=== PATIENT | female | born 1995 | race Caucasian/White ===

== ENCOUNTER 2017-07-30 01:32 | Emergency (ER) | payer BC ==
[~2017-07-30] VITALS: Ht 170.2 cm; Wt 106.6 kg
[2017-07-30 01:32] VITALS: BP_SYST 139
--- NOTE | 2017-07-30 01:32 | NUR ---
Placed in room 7 . Placed on manager speech, blood pressure machine and pulse oximeter. To gown for exam. Side rails up. Report given by MAO Byrne to MAO Novoa.
--- NOTE | 2017-07-30 01:33 | NUR ---
Patient AAOx3, ambulatory. Patient states having pain to center of chest with pain scale 7/10 approximately 30 minutes prior to ER visit. Patient states she was having "pain to her shoulders throughout the day" and states she "started having chest pain while sitting down at home". Patient states having difficulty breathing, denies dizziness at this time. Patient states pain does not radiate at this time. Patient states pain has a "sharp" sensation and is continuous. Patient denies any other complaints.
[2017-07-30] MEDS ORDERED: ALBU8.5H8 INH (01:48)
[2017-07-30] MEDS ORDERED: FLUO60TA PO (01:48)
--- NOTE | 2017-07-30 01:49 | NUR ---
ER Dr. Zacarias at bedside examining patient.
--- NOTE | 2017-07-30 01:59 | NUR ---
Radiology at bedside.
[2017-07-30 02:24] VITALS: BP_SYST 125
--- NOTE | 2017-07-30 02:24 | NUR ---
Patient given written and verbal discharge instructions and verbalizes understanding. ER MD discussed with patient the results and treatment provided. Patient in stable condition. ID arm band removed. Rx of Motrin 800 mg tab given. Patient educated on pain management and to follow up with PMD. Pain Scale 0/10. Opportunity for questions provided and answered.
== END 2017-07-30 02:24 | disposition home or self-care (01) ==
LOC: SED 01:32
DX: M94.0 Chondrocostal junction syndrome [Tietze] (principal); J45.909 Unspecified asthma, uncomplicated; F32.9 Major depressive disorder, single episode, unspecified
CPT/HCPCS: 71045; 93005; 99284

== ENCOUNTER 2018-08-28 17:35 | Emergency (ER) | payer BC ==
[~2018-08-28] VITALS: Ht 170.2 cm; Wt 113.4 kg
[~2018-08-28 17:35] MED LIST: ALBU8.5H8 INH; FLUO60TA PO
[2018-08-28 17:43] VITALS: BP_SYST 132
[2018-08-28] MEDS ORDERED: NACL 0.9% 1,000 ML IV ONE (18:09)
--- NOTE | 2018-08-28 18:40 | NUR ---
Called pt x 1 , no answer
--- NOTE | 2018-08-28 18:50 | NUR ---
Patient to ER bed 03 to gown for evaluation. Side rails up.
[2018-08-28 19:02] LABS: EOSINOPHILS # (AUTO) 0.3 K/uL (0.0-0.4); LYMPHOCYTES # (AUTO) 1.5 K/uL (1.0-5.5)
--- NOTE | 2018-08-28 19:10 | NUR ---
Patient presents to ER for overdose of tylenol ES 500mg (8 tabs) and buspar 5mg (1 tab) at around 1600 today. Patient states no suicidal ideation and intent was not to harm self. Patient states she was trying to make a headache go away and medication was not helping. Mother at bedside. Patient resting on gurney at this time. No acute distress noted.
[2018-08-28 19:13] LABS: ANION GAP 12 (5-15); CALCIUM 8.6 mg/dL (8.4-11.0); CHLORIDE 103 mmol/L (98-107); CREATININE 0.54 mg/dL (0.55-1.30); GLUCOSE 100 mg/dL (70-99); POTASSIUM 3.2 mmol/L (3.5-5.1); SODIUM SERUM 139 mmol/L (136-145); UREA NITROGEN, BLOOD 11 mg/dL (8-21)
[2018-08-28 19:16] LABS: BASOPHILS % (AUTO) 0.5 % (0.0-2.0); EOSINOPHILS % (AUTO) 4.6 % (0.0-4.0); HEMATOCRIT 38.6 % (36-48); HEMOGLOBIN 12.6 g/dL (12.0-16.0); LYMPHOCYTES % (AUTO) 21.3 % (20.5-51.5); MEAN CORPUSCULAR HEMOGLOBIN 24 pg (27-31); MEAN CORPUSCULAR HGB CONC 33 % (32-36); MEAN CORPUSCULAR VOLUME 73 fL (79.0-98.0); MONOCYTES # (AUTO) 0.2 K/uL (0.0-1.0); MONOCYTES % (AUTO) 3.4 % (1.7-9.3); NEUTROPHILS % (AUTO) 70.2 % (40.0-70.0); PLATELET COUNT (AUTO) 372 K/uL (130-430); RED BLOOD CELL COUNT(AUTO) 5.31 MIL/uL (4.2-6.2); RED CELL DISTRIBUTION WIDTH 12.8 % (9.0-15.0)
[2018-08-28 19:22] LABS: GFR AFRICAN AMERICAN 182 mL/min (>90)
[2018-08-28 19:28] LABS: INR 0.9 (0.8-1.2); PROTHROMBIN TIME 9.3 SECS (9.5-12.5)
[2018-08-28 19:34] LABS: ACETAMINOPHEN 21 ug/mL (1-30); ALANINE AMINOTRANSFERASE 11 U/L (12-78); AMYLASE 72 U/L (0-100); ASPARTATE AMINOTRANSFERASE 10 U/L (10-37); LIPASE 218 U/L (73-393); TOTAL BILIRUBIN 0.4 mg/dL (0.0-1.0)
[2018-08-28 19:35] LABS: ALCOHOL, BLOOD < 3 mg/dL (<10)
[2018-08-28 19:37] LABS: BILIRUBIN,URINE NEGATIVE (NEGATIVE); BLOOD, URINE NEGATIVE (NEGATIVE); CLARITY/URINE CLEAR (CLEAR); COLOR,URINE YELLOW (YELLOW); GLUCOSE,URINE NEGATIVE (NEGATIVE); KETONES,URINE NEGATIVE (NEGATIVE); LEUKOCYTE ESTERASE ,URINE NEGATIVE (NEGATIVE); NITRITE, URINE NEGATIVE (NEGATIVE); PH,URINE 5.5 (5.0-8.0); PROTEIN URINE NEGATIVE (NEGATIVE); UROBILINOGEN,URINE 0.2 (0.2-1.0)
[2018-08-28 19:39] LABS: BARBITURATE, URINE NEGATIVE (NEG <=200); BENZODIAZEPINE, URINE NEGATIVE (NEG <=150); CANNABINOID, URINE NEGATIVE (NEG <=50); COCAINE, URINE NEGATIVE (NEG <=150); METHAMPHETAMINES SCREEN,URINE NEGATIVE (NEG <=500); OPIATE, URINE NEGATIVE (NEG <=100); PHENCYCLIDINE SCREEN,URINE NEGATIVE (NEG <=25); UR TRICYCLIC ANTIDEPRESSANTS NEGATIVE (NEG <=300); URINE AMPHETAMINE NEGATIVE (NEG <=500); URINE METHADONE NEGATIVE (NEG <=200); URINE OXYCODONE SCREEN NEGATIVE (NEG <=100); URINE PROPOXYPHENE SCREEN NEGATIVE (NEG <=300)
--- NOTE | 2018-08-28 19:43 | NUR ---
ER MD Brito at bedside for medical evaluation.
--- NOTE | 2018-08-28 20:22 | NUR ---
Called Poison Control at [phone] and spoke with Honey. Per recommendations:Redraw Acetaminophen and saliscylate levels x4 hours after time of injestion. If Acetaminophen level >150 administer Acetalcystine. Monitor patient x 4-6 hours for possible drowsiness related to Buspar injestion. Dr. Brito notified. Will continue to monitor patient.
--- NOTE | 2018-08-28 20:36 | NUR ---
Awaiting pending Acetaminophen and Saliscylate levels drawn at 2024. MD Brito made aware.
[2018-08-28 20:46] LABS: ACETAMINOPHEN 4 ug/mL (1-30)
[2018-08-28 23:00] VITALS: BP_SYST 128
--- NOTE | 2018-08-28 23:00 | NUR ---
Patient given written and verbal discharge instructions and verbalizes understanding. ER MD discussed with patient the results and treatment provided. Patient in stable condition. ID arm band removed. IV catheter removed intact and dressing applied, no active bleeding. No Rx given. Patient educated on pain management and to follow up with PMD. Pain Scale 0/10. Opportunity for questions provided and answered.
== END 2018-08-28 23:00 | disposition home or self-care (01) ==
LOC: SED 17:35
DX: R51 Headache (principal); T39.1X5A Adverse effect of 4-Aminophenol derivatives, initial encounter; R03.0 Elevated blood-pressure reading, without diagnosis of hypertension; F41.9 Anxiety disorder, unspecified; F32.9 Major depressive disorder, single episode, unspecified; J45.909 Unspecified asthma, uncomplicated; Y92.89 Other specified places as the place of occurrence of the external cause
CPT/HCPCS: 36415; 71045; 80053; 80307; 81003; 81025; 82150; 82550; 83690; 84484; 85025; 85610; 85730; 93005; 99284; G0480; G0481; G0482; J7030

== ENCOUNTER 2019-05-26 20:31 | Emergency (ER) | payer BC ==
[~2019-05-26] VITALS: Ht 170.2 cm; Wt 127.0 kg
[2019-05-26 20:35] VITALS: BP_SYST 128
[2019-05-26] MEDS ORDERED: ONDANSETRON 4 MG ODT TAB PO ONE (22:00)
[2019-05-26] MEDS ORDERED: IBUPROFEN 800 MG TABLET PO ONE (22:30)
[2019-05-26 22:40] VITALS: BP_SYST 131
== END 2019-05-26 22:40 | disposition home or self-care (01) ==
LOC: SED 20:31
DX: J01.90 Acute sinusitis, unspecified (principal); J45.909 Unspecified asthma, uncomplicated; F32.9 Major depressive disorder, single episode, unspecified; F41.9 Anxiety disorder, unspecified
CPT/HCPCS: 99283; Q0162

== ENCOUNTER 2021-01-11 22:49 | Emergency (ER) | payer BC ==
[~2021-01-11] VITALS: Ht 170.2 cm; Wt 136.1 kg
[2021-01-11 23:15] VITALS: BP_SYST 144
--- NOTE | 2021-01-11 23:16 | NUR ---
Came in ER ambulatory accompanied by her mother this 25 year old female, AAOX4, breathing spontaneously at room air, not in distress noted. With chief complaints of skin rashes all over the body today, denies any food intake that can trigger the rashes, no known medical/no surgical history, no known allergy
--- NOTE | 2021-01-11 23:35 | NUR ---
Seen and examined by Dr. Marrufo, ER Attending
[2021-01-11] MEDS ORDERED: predniSONE 20 MG TABLET PO ONE (23:45)
[2021-01-12] MEDS ORDERED: PRED20TA PO (00:28)
[2021-01-12] MEDS ORDERED: CETI10CA11 PO (00:28)
--- NOTE | 2021-01-12 00:44 | NUR ---
Medications given as ordered, health teaching provided and verbalized understanding
[2021-01-12 00:45] VITALS: BP_SYST 128
--- NOTE | 2021-01-12 00:45 | NUR ---
Patient given written and verbal discharge instructions and verbalizes understanding. ER MD discussed with patient the results and treatment provided. Patient in stable condition. ID arm band removed. Rx of CETIRIZINE AND PREDNISONE given. Patient educated to follow up with PMD. Pain Scale0/10. Opportunity for questions provided and answered. Medication side effect fact sheet provided.
== END 2021-01-12 00:45 | disposition home or self-care (01) ==
LOC: SED 22:49
DX: L50.9 Urticaria, unspecified (principal); J45.909 Unspecified asthma, uncomplicated; Z79.899 Other long term (current) drug therapy
CPT/HCPCS: 99283; J7512